=== PATIENT | male | born 1995 | race Caucasian/White ===

== ENCOUNTER 2017-06-24 21:53 | Emergency (ER) | payer BC ==
[~2017-06-24] VITALS: Ht 190.5 cm; Wt 98.7 kg
[2017-06-24 21:56] VITALS: TEMP 36.8; Ht 190.5 cm; Wt 98.7 kg
[2017-06-24] MEDS ORDERED: NORCO 5/325MG HOME PACK PO ONE (22:30)
[2017-06-24 22:45] VITALS: BP 124/62; PULSE 82; O2SAT 100
[2017-06-24] MEDS ORDERED: OMEG10007 PO (22:45)
[2017-06-24] MEDS ORDERED: ASCO500T3 PO (22:45)
[2017-06-24] MEDS ORDERED: DEXT30TA7 PO (22:45)
[2017-06-24] MEDS ORDERED: PHEN-622 PO (22:45)
--- NOTE | 2017-06-25 00:48 | EMERGENCY ROOM VISIT NOTE ---
ED Visit Note First contact with patient: 22:07 CHIEF COMPLAINT: Sore throat HISTORY OF PRESENT ILLNESS: This 22-year-old male patient presents to the emergency department complaining of increasing pain in the throat for the past 5 or 6 days, gradual in onset, worse with swallowing. They rate the pain as sharp and 7/10. They are able to swallow. The patient has not had a fever. No rash. Denies any posterior neck pain or stiffness. No difficulty breathing. Symptoms came on gradually. There has been no chest pain, no abdominal pain, no nausea or vomiting. Patient denies any cough, rhinorrhea, congestion, or ear pain. The patient has taken nothing for their symptoms. REVIEW OF SYSTEMS: A 6 system review of systems was completed with pertinent positives and negatives in the HPI. ALLERGIES: Known allergies MEDICATIONS: No current medications PMH: Otherwise healthy SOCIAL HISTORY: Student was locally PHYSICAL EXAM: Vital Signs: Reviewed Nurse's notes. GENERAL: White male, in no acute distress, non toxic in appearance, well developed, well nourished. MENTAL STATUS: Alert and oriented to person place and time. SKIN: Clear and dry, no eruptions, or rashes. No cyanosis, no petechiae. EARS: External auditory canals clear, tympanic membrane pearly ojeda without erythema or effusion bilaterally. EYES: Pupils equal round and reactive to light and accommodation. Conjunctivae without injection, sclerae without icterus. Extraocular movements intact. NOSE: Patent, turbinates inflammed with no discharge. No sinus tenderness. MOUTH: Mucous membranes moist. Tonsils are not enlarged or with exudates. The Pharynx is inflamed and slightly swollen. Pharynx with mild postnasal drip. Uvula is midline and no abscess is seen. NECK: Supple without nuchal rigidity. Anterior cervical lymphadenopathy without posterior cervical, or auricular, or submandibular lymphadenopathy. HEART: Regular rate and rhythm without murmurs gallops or rubs. LUNGS: Clear to auscultation bilaterally without wheezes, rales or rhonchi. ABDOMEN: Positive bowel sounds x 4. Normal tympanic percussion. Soft, nontender, without masses or organomegaly. ED COURSE: I examined the patient. A rapid strep test was negative. A backup culture was sent. The patient was instructed on the plan below and was discharged home in good condition. Current/Historical Medications Scheduled Ascorbic Acid (Vitamin C), 1 TAB PO DAILY Fish Oil ([place]-3), 1 CAP PO DAILY Scheduled PRN Dextromethorphan-Guaifenesin (Mucinex Dm), 1 TAB PO Q12 PRN for CONGESTION Bomladpgrethr-Dk-Lr W/ Apap ([place] Dayquil Severe Cold), 1 TAB PO BID PRN for COLD Vital Signs Date Time Temp Pulse Resp B/P (MAP) Pulse Ox O2 Delivery O2 Flow Rate FiO2 06/24/17 22:45 82 16 124/62 100 06/24/17 21:56 97 Room Air 06/24/17 21:56 36.8 75 18 156/90 97 Room Air Medications Administered Medications (Trade) Dose Ordered Sig/Cameron Route Start Time Stop Time Status Last Admin Dose Admin Acetaminophen/ Hydrocodone Bitart ([place] 5/325mg Home Pack) 1 homepack UD ONCE PO 06/24/17 22:30 06/24/17 22:31 DC 06/24/17 22:44 1 HOMEPACK Departure Information Impression Primary Impression: Sore throat Dispostion Home / Self-Care Condition GOOD Referrals [facility] (PCP) Forms HOME CARE DOCUMENTATION FORM, IMPORTANT VISIT INFORMATION Patient Instructions [facility] Additional Instructions You were seen and evaluated today on an emergency basis only. This is not a substitute for, or an effort to provide, complete comprehensive medical care. It is not possible to recognize and treat all injuries or illnesses in a single emergency department visit. For this reason it is recommended that you followup with your primary care physician or [facility] this week for recheck of your condition. For baseline pain relief you may alternate ibuprofen and acetaminophen every 4 hours for pain control. Take 600 mg ibuprofen (Advil) and then 4 hours later take 1000 mg acetaminophen (Tylenol). Do not take more than 3000 mg acetaminophen in a single day. [place] (hydrocodone/acetaminophen) 5/325 mg (homepack): ONE tab every 6 hours as needed for worsening breakthrough pain. Do not drink or drive on [place]. This medication will likely make you tired. Do not take [place] and Tylenol at the same time as both contain acetaminophen. [place] may cause constipation. You may wish to take an tzta-ytr-nvojmek stool softener like Colace if this occurs. You are welcome to return to the emergency department anytime with new, worsening, or concerning symptoms.
== END 2017-06-24 22:46 | disposition home or self-care (01) ==
LOC: C.EDB 21:54 → C.EDD 22:46
DX: J02.9 Acute pharyngitis, unspecified (principal)

== ENCOUNTER 2019-07-04 16:00 | Inpatient (IN) ==
[2019-07-04 17:14] LABS: Basophils # (auto) 0.02 K/uL (0-0.2); Basophils % (auto) 0.5 %; Eosinophils # (auto) 0.01 K/uL (0-0.5); Eosinophils % (auto) 0.2 %; Hematocrit (blood only) 42.8 % (42-52); Lymphocytes # (auto) 1.15 K/uL (1.2-3.4); Lymphocytes % (auto) 26.6 %; Mean Corpuscular Hemoglobin 30.5 pg (25-34); Mean Platelet Volume 10.2 fL (7.4-10.4); Monocytes # (auto) 0.18 K/uL (0.11-0.59); Monocytes % (auto) 4.2 %; Neutrophils # (auto) 2.97 K/uL (1.4-6.5); Neutrophils % (auto) 68.5 %; Platelet Count 182 K/uL (130-400); RDW Coefficient of Variation 12.9 % (11.5-14.5); RDW Standard Deviation 41.5 fL (36.4-46.3); Red Blood Count 4.92 M/uL (4.7-6.1); White Blood Count 4.33 K/uL (4.8-10.8)
[2019-07-04 17:23] LABS: Appearance Urine Clear (Clear); Bilirubin Urine Negative (Negative); Blood Urine Negative (Negative); Color Urine Colorless; Glucose Urine UA Negative (Negative); Ketones Urine Negative (Negative); Leukocyte Esterase Urine Negative (Negative); Nitrite Urine Negative (Negative); Protein Urine Negative (Negative); Specific Gravity Urine <= 1.005 (1.000-1.030); Urobilinogen Urine Negative (Negative); pH Urine 6.5 (4.5-7.5)
[2019-07-04 17:31] LABS: Albumin Level 4.4 gm/dl (3.4-5.0); BUN Creatinine Ratio 7.2 (10-20); Calcium 8.6 mg/dl (8.5-10.1); Creatinine Clr Calc Pharmacy 110.8 ml/min; Est GFR (African American) 94.1; Est GFR (Non-African American) 81.2; Potassium 4.3 mmol/L (3.5-5.1)
[2019-07-04 17:42] LABS: Albumin Globulin Ratio 1.5 (0.9-2); Bilirubin,Total 0.6 mg/dl (0.2-1); Thyroid Stimulating Hormone 0.527 uIu/ml (0.300-4.500); Total Protein 7.4 gm/dl (6.4-8.2)
[2019-07-04 17:44] LABS: Salicylate < 1.7 mg/dl (2.8-20)
[2019-07-04 17:45] LABS: Acetaminophen < 2 ug/ml (10-30)
[2019-07-04 17:49] LABS: Amphetamines+Metham, Urine Neg (Neg); Barbiturates, Urine Neg (Neg); Benzodiazepine, Urine Neg (Neg); Cocaine, Urine Neg (Neg); MDMA (Ecstacy), Urine Neg (Neg); Methadone, Urine Neg (Neg); Opiate, Urine Neg (Neg); Phencyclidine, Urine Neg (Neg)
--- NOTE | 2019-07-04 22:10 | Emergency Department Note ---
Entered by Isis Lorenzo acting as a scribe for History of Present Illness General Chief complaint: Mental Health Evaluation Stated complaint: MHID Time Seen by Provider: 07/04/19 16:33 Source: patient and EMS History of Present Illness Onset (ago): minute(s) (prior to arrival) Location: head (general) Pain Consistency: + other (episode) Maximum Pain Intensity: 0 Quality: + other (suicidal statements) Associated symptoms: + denies other symptoms (trauma), + loss of appetite and + other (lack of sleep and motivation); no nausea/vomiting The patient is a 24 year old male who presents to the Emergency Room following an episode of suicidal statements that occurred prior to arrival. EMS states the patient told his brother that he was going to jump off of [employer]. The patient states his ex-girlfriend, of almost two years, broke up with him about two months ago. He states that he has not been able to eat or sleep since then, and reports that he has lost 10 lbs. He notes a complete lack of motivation as well. The patient reports seeing his ex-girlfriend at a tailgate today, and wanting to say hello. He states that her friends told him to stay away and that he was selfish. He notes this is when he made the suicidal statements. The patient denies vomiting and trauma. He reports alcohol use this morning, but states it was nothing out of the ordinary. He denies any drug use. The patient reports having suicidal ideations since the age of 12. He reports trying to hurt himself one time when he was [age] due to bullying. The patient states he does not want to stay in the hospital for treatment. Home Medications Home Medications Medication Instructions Recorded Confirmed Type dextroamphetamine-amphetamine 20 mg PO DAILY 07/04/19 07/04/19 History [Adderall] Allergies Allergy/AdvReac Type Severity Reaction Status Date / Time No Known Allergies Allergy Verified 07/04/19 17:17 Past Med/Surg History Medical History No known health problems Surgical History No pertinent past surgical history Family History Other No significant family history Social History Preferred Language: Indonesian Communication Ability: Effective [employer] Required: No Beliefs That Will Affect Care: None marital status: Single Current Living Situation: Significant Other current occupational status: student Feels Safe at Home: Yes Smoking Status: Never smoker Hx Substance Use: No Review of Systems See HPI for pertinent positives & negatives. and A total of 10 systems reviewed and were otherwise negative Physical Exam Vital Signs Vital Signs - 24 hr 07/04/19 16:13 07/04/19 17:53 Temperature 36.7 C Temperature Source Oral Sepsis Recent Fever Within 48 Hours No Sepsis New/Unexplained Change in Mental Status No Sepsis Action Taken by Nursing No Action Required Pulse Rate 104 H Pulse Rate [Finger] 98 H Pulse Rhythm Regular Pulse Rhythm [Finger] Regular Respiratory Rate 18 17 Respiratory Effort / Characteristics Non-Labored Spontaneous Non-Labored Spontaneous Respiratory Depth Normal Normal Respiratory Pattern Regular Regular Blood Pressure 155/113 H Blood Pressure [Left Arm] 120/60 Blood Pressure Mean 127 Blood Pressure Mean [Left Arm] 80 Pulse Oximetry 96 98 Oxygen Delivery Method Room Air Room Air GENERAL: Patient is in no acute distress. HEENT: No acute trauma, normocephalic atraumatic, mucous membranes moist, no nasal congestion, no scleral icterus. NECK: No stridor, no adenopathy, no meningismus, trachea is midline. LUNGS: Clear to auscultation bilaterally, no wheeze, no rhonchi, breath sounds equal. HEART: Without murmurs gallops or rubs, regular rate and rhythm. ABDOMEN: Soft, nontender, bowel sounds positive, no hernias, no peritonitis. EXTREMITIES: No cyanosis or edema, full range of motion of all the joints without pain or difficulty, no signs for acute trauma. NEUROLOGIC: Oriented x 3, no acute motor or sensory deficits, no focal weakness. Slight speech slur consistent possibly with alcohol intoxication. SKIN: No rash, no jaundice, no diaphoresis. PYSCH: Patient admits to suicidal thoughts of jumping off [employer]. Currently voluntary and cooperative. Course 1640: Past medical records reviewed. The patient was evaluated in room A06. A complete history and physical exam was performed. 175: The patient's alcohol level will be below 100 at approximately 9pm. 2100: Upon reevaluation, the patient was resting comfortably. I discussed findings and results with the patient. Case management was speaking with the patient's mother. 2129: Case management advised voluntary hospital stay. Patient was consenting. 2254: The patient will be evaluated for further management and care in [address] [place] [address]. Medical Decision Making Differential Diagnosis Differential diagnosis: Suicidal ideation, alcohol and drug abuse, situational depression, electrolyte imbalance, anemia, thyroid disorder Medical Records Attestation: I reviewed the patient's medical records. Home Medications Current Medication List: was personally reviewed by me Laboratory Data Attestation: I reviewed the patient's lab results. Result diagrams: 07/04/19 17:01 07/04/19 17: Lab Results 07/04/19 07/04/19 07/04/19 Range/Units 17:00 17:00 17: WBC 4.33 L (4.8-10.8) K/uL RBC 4.92 (4.7-6.1) M/uL Hgb 15.0 (14.0-18.0) g/dL Hct 42.8 (42-52) % MCV 87.0 (80-100) fL MCH 30.5 (25-34) pg MCHC 35.0 (32-36) g/dL RDW Std Deviation 41.5 (36.4-46.3) fL RDW Coeff of Lia 12.9 (11.5-14.5) % Plt Count 182 (130-400) K/uL MPV 10.2 (7.4-10.4) fL Immature Gran % (Auto) 0.0 % Neut % (Auto) 68.5 % Lymph % (Auto) 26.6 % Kay % (Auto) 4.2 % Eos % (Auto) 0.2 % Baso % (Auto) 0.5 % Immature Gran # (Auto) 0.00 (0.00-0.02) K/uL Neut # (Auto) 2.97 (1.4-6.5) K/uL Lymph # (Auto) 1.15 L (1.2-3.4) K/uL Kay # (Auto) 0.18 (0.11-0.59) K/uL Eos # (Auto) 0.01 (0-0.5) K/uL Baso # (Auto) 0.02 (0-0.2) K/uL Sodium (136-145) mmol/L Potassium (3.5-5.1) mmol/L Chloride (98-107) mmol/L Carbon Dioxide (21-32) mmol/L Anion Gap (3-11) BUN (7-18) mg/dl Creatinine (0.6-1.4) mg/dl Est Cr Clr Drug Dosing ml/min Est GFR ( Amer) Est GFR (Non-Af Amer) BUN/Creatinine Ratio (10-20) Glucose (70-99) mg/dl Calcium (8.5-10.1) mg/dl Total Bilirubin (0.2-1) mg/dl AST (15-37) U/L ALT (12-78) U/L Alkaline Phosphatase (45-117) U/L Total Protein (6.4-8.2) gm/dl Albumin (3.4-5.0) gm/dl Globulin (2.5-4.0) gm/dl Albumin/Globulin Ratio (0.9-2) TSH (0.300-4.500) uIu/ml Urine Color Colorless Urine Appearance Clear (Clear) Urine pH 6.5 (4.5-7.5) Ur Specific [place] <= 1.005 (1.000-1.030) Urine Protein Negative (Negative) Urine Glucose (UA) Negative (Negative) Urine Ketones Negative (Negative) Urine Blood Negative (Negative) Urine Nitrite Negative (Negative) Urine Bilirubin Negative (Negative) Urine Urobilinogen Negative (Negative) Ur Leukocyte Esterase Negative (Negative) Salicylates (2.8-20) mg/dl Urine Opiates Screen Neg (Neg) Ur Methadone, Qual Neg (Neg) Acetaminophen (10-30) ug/ml Urine Barbiturates Neg (Neg) Ur Phencyclidine (PCP) Neg (Neg) U Amphetamin/Meth Scrn Neg (Neg) MDMA (Ecstasy) Screen Neg (Neg) U Benzodiazepines Scrn Neg (Neg) Ur Cocaine Metabolite Neg (Neg) U Marijuana (THC) Screen Neg (Neg) Ethyl Alcohol mg/dL (0-3) mg/dl 07/04/19 07/04/19 07/04/19 Range/Units 17:01 17:01 17:01 WBC (4.8-10.8) K/uL RBC (4.7-6.1) M/uL Hgb (14.0-18.0) g/dL Hct (42-52) % MCV (80-100) fL MCH (25-34) pg MCHC (32-36) g/dL RDW Std Deviation (36.4-46.3) fL RDW Coeff of Lia (11.5-14.5) % Plt Count (130-400) K/uL MPV (7.4-10.4) fL Immature Gran % (Auto) % Neut % (Auto) % Lymph % (Auto) % Kay % (Auto) % Eos % (Auto) % Baso % (Auto) % Immature Gran # (Auto) (0.00-0.02) K/uL Neut # (Auto) (1.4-6.5) K/uL Lymph # (Auto) (1.2-3.4) K/uL Kay # (Auto) (0.11-0.59) K/uL Eos # (Auto) (0-0.5) K/uL Baso # (Auto) (0-0.2) K/uL Sodium 136 (136-145) mmol/L Potassium 4.3 (3.5-5.1) mmol/L Chloride 103 (98-107) mmol/L Carbon Dioxide 28 (21-32) mmol/L Anion Gap 5.0 (3-11) BUN 9 (7-18) mg/dl Creatinine 1.25 (0.6-1.4) mg/dl Est Cr Clr Drug Dosing 110.8 ml/min Est GFR ( Amer) 94.1 Est GFR (Non-Af Amer) 81.2 BUN/Creatinine Ratio 7.2 L (10-20) Glucose 92 (70-99) mg/dl Calcium 8.6 (8.5-10.1) mg/dl Total Bilirubin 0.6 (0.2-1) mg/dl AST 19 (15-37) U/L ALT 30 (12-78) U/L Alkaline Phosphatase 87 (45-117) U/L Total Protein 7.4 (6.4-8.2) gm/dl Albumin 4.4 (3.4-5.0) gm/dl Globulin 3.0 (2.5-4.0) gm/dl Albumin/Globulin Ratio 1.5 (0.9-2) TSH 0.527 (0.300-4.500) uIu/ml Urine Color Urine Appearance (Clear) Urine pH (4.5-7.5) Ur Specific [place] (1.000-1.030) Urine Protein (Negative) Urine Glucose (UA) (Negative) Urine Ketones (Negative) Urine Blood (Negative) Urine Nitrite (Negative) Urine Bilirubin (Negative) Urine Urobilinogen (Negative) Ur Leukocyte Esterase (Negative) Salicylates < 1.7 L (2.8-20) mg/dl Urine Opiates Screen (Neg) Ur Methadone, Qual (Neg) Acetaminophen < 2 L (10-30) ug/ml Urine Barbiturates (Neg) Ur Phencyclidine (PCP) (Neg) U Amphetamin/Meth Scrn (Neg) MDMA (Ecstasy) Screen (Neg) U Benzodiazepines Scrn (Neg) Ur Cocaine Metabolite (Neg) U Marijuana (THC) Screen (Neg) Ethyl Alcohol mg/dL 197.0 H (0-3) mg/dl Blood Pressure Blood Pressure Findings: Elevated blood pressure Blood Pressure Disposition: further management by hospitalist MDM Narrative There is no leukocytosis or concerning anemia. No significant electrolyte abnormality. No kidney failure. No liver enzyme elevation. The patient appears to be in a euthyroid state. Urinalysis does not show infection. Urine tox is negative. Aspirin, Tylenol levels are undetectable. Alcohol level was elevated at 197. The patient was watched for about 4 hours, this allowed his alcohol to clear. He was then assessed by psychiatry case management. The patient is demonstrating suicidality. A hospital stay was felt warranted. The patient did consent to a voluntary stay. A bed search was performed. The patient will be brought into our hospital's psychiatric facility, [facility] [address] The marisa ent has been cooperative during his ED stay. Impression & Plan Suicidal ideation, Alcohol abuse Discharge Plan Visit Data *Final* Discharge Date/Time: 07/04/19 23:10 Chief Complaint: Mental Health Evaluation Stated Complaint: MHID ED Provider: Remigio Degroot Discharge Problem: Suicidal ideation, Alcohol abuse Patient Disposition: Admitted As Inpatient Condition: Good Discharge Instructions Interventions: ED Discharge Assessment Last Done: 07/04/19 23:10 The janay's documentation has been prepared under my direction and personally reviewed by me in its entirety. I confirm that the note above accurately reflects all work, treatment, procedures, and medical decision making performed by me.
[2019-07-04] MEDS ORDERED: BISMUTH SUBSALICYLATE PER ML OMNICELL CHARGE PO PRN (23:40)
[2019-07-04] MEDS ORDERED: ALUMINUM/MAGNESIUM SUSP 30 ML UDC PO PRN (23:40)
[2019-07-04] MEDS ORDERED: MAGNESIUM HYDROXIDE SUSP 30 ML UDC PO PRN (23:40)
[2019-07-04] MEDS ORDERED: SODIUM CHLORIDE 0.65% NA SOLN 45 ML (OCEAN) PRN (23:40)
[2019-07-05] MEDS ORDERED: SERTRALINE HCL 50 MG TABLET PO ONE (15:30)
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
[2019-07-06] MEDS: SERTRALINE HCL 50 MG TABLET PO SCH (08:01)
--- NOTE | 2019-07-06 12:21 | Psychiatric Progress Note ---
Date of Service July 06, 2019 Impression / Recommendations Impression Pt is a 24yo SWM with h/o ADD tx with adderall who now is depressed for 2 months s/p break up. He demonstrates some chronic interpersonal difficulties peppered throughout his life and it is unclear if there are deficits in interpersonal skills that cause him to form relationships with people with traits that take advantage of or bully, or if something happens during the relationship that he is not perceiving, or series of unfortunate events or further residual sx of ADHD that have allowed deficits in social learning at times. He does report a good 2 years in college 2017 to 2019. 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 He has enough neurovegatative sx that this supercedes grief and could be called depression. He has some anxiety features but will not dx stand alone anxiety disorder at this time. He reports cutting back on alcohol since college so although alcohol intoxication mediated this recent SI, and admission he does not seem to have a formal alcohol use disorder. (1) Suicidal ideation: 07/05 - inpatient care is least restrictive and most appropriate setting for care at this time while we observe behaviors and modify safety risk factors 07/06 - Pt denies continued suicidality; continue to encourage development of healthy coping strategies (2) Major depressive disorder, single episode with psychotic features with anxious distress: - patient is open to therapy referral in his local area - briefly discussed grief and his negative lens as topics for therapy - he may benefit from group therapy for social support and practice if available in his area - patient is open to SSRI zoloft, discussed r/b/se/a to include black box warning for watching for SI, and/or mood switching 25mg on 07/05, and then 50mgpo qday starting AM 07/06/19 for depression wtih anxious distress - agree with kwok milieu, group therapy and safety planning - h/o ADHD will not restart adderall, as watching BP and hospital stay will be short and he can resume when he returns to outpatient setting 07/06 - Continue sertraline 50mg; consider further titration prior to discharge depending on tolerance - Continue to secure therapy options in his area; has a current psychiatric prescriber - Encourage family meeting with outpatient support Inventory Assets Strengths: voluntary for admission willing to discuss and consider treatment Needs: after care therapist social supports Risk Factors Assessment Male: Yes : Yes Health Problems: No Mental Health Diagnoses: Yes Substance Use Disorders: No Previous Attempt: Yes Family History of Suicide: No Previous Psychiatric Hospitalization: No Hopelessness: No Smoker: No Protective Factors Assessment Mormonism Beliefs: No : No Responsible for Young Children: No 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 He as was admitted on 07/04/19 22:43 on a 201 voluntary commitment for SI initially verbalized while intoxicated but when sober noted "it was not the alcohol....I am depressed" and could not contract for safety to return home. Chief Complaint "I've been feeling better. I had a good conversation last night, and I'm done with it. I need to move on." Review of Systems Notes Constitutional: denied Cardiovascular: denied Respiratory: denied Gastrointestinal: denied Neurological: denied Psychiatric: denies symptoms other than stated above Total of at least 10 systems reviewed, pertinent positives as above and in HPI. Sleep Information Total Hours of Sleep: 7.5 Sleep Comments: pt on q-15 minute checks Meal Information Percent Meal Consumed - Breakfast: 90 Percent Meal Consumed - Lunch: 100 Percent Meal Consumed - Dinner: 100 Subjective Subjective Patient was seen & assessed and interval progress reviewed with treatment team. Staff report the patient admits to some improvement in mood, feeling the fact that he was intoxicated was largely to blame for his admission. Pt has not yet identified supports he would like to have a meeting with. Patient was seen today to assess progress since admission. Pt states he is "feeling better." He shares with this provider general information regarding the situation leading to his admission. He states that his lack of closure with his current relationship "has been on my brain every day, over and over, just building a building." Patient states that he had a decent conversation with a counselor last evening, allowing him to come to the realization "the world doesn't owe me closure." He states that he spent some time thinking last evening and determined "it was searching for this closure that led me to this terrible mood, pretty bad weight loss, and just feeling terrible. I realized that if something was making me feel like that, it was not worth my time anymore." The patient continues to admit that alcohol use did not benefit the situation, and states "I never want to touch alcohol again. I view it is the driving force for all of the negative things that have happened in my life." Patient states he is interested in continuing outpatient psychiatric treatment, and verbalizes to this provider "I am well prepared to put in the work I have to." Patient does share with this provider desire to involve outpatient supports in a family meeting, but is not yet sure of who that might be. Patient also verbalizes anxiety about a phone call he is to be getting following up on an important interview, and also needing to reschedule the LSATswhich she was supposed to take this coming weekend. This provider stated we would assist the patient in these tasks, and continue to work with him on improving his mood and solidifying aftercare. Patient denies suicidality today, does not verbalize any other needs or concerns at this time. Physical Exam Psychiatric Orientation: alert, oriented x 3 and cooperative (and pleasant) Apperance: appropriately dressed, appropriately groomed and appeared stated age Eye Contact: good eye contact Motor Behavior: steady gait and station and no abnormal motor movements Speech: normal rate/rhythm/volume of speech Affect: + depressed affect and mood congruent with affect Mood: + depressed mood ("Things are getting better" and "I was honestly at my lowest point") Thought Process: goal directed thought process, clear/coherent thought process and thought association intact Thought Content: reality based without delusions; no hopelessness (reports desire to move beyond requiring closure from ended relationship) Suicidal Thoughts: denies suicidal thoughts and denies suicidal intent Homicidal Thoughts: denies homicidal thoughts Hallucinations: no auditory hallucinations and no visual hallucinations Insight: + fair insight Judgement: + fair judgement Vital Signs (Past 24 Hours) Last Vital Signs Temp 36.7 C 07/06/19 07:00 Pulse 89 07/06/19 07:01 Resp 18 07/06/19 07:00 BP 131/81 07/06/19 07:01 Pulse Ox 96 07/04/19 23:44 Results & Data Current Inpatient Medications Current Inpatient Medications: Current Inpatient Medications Acetaminophen (Tylenol) 650 mg PO Q4H PRN PRN Reason: Headache or Minor Fever Stop: 08/03/19 23:39 Al Hydrox/Mg Hydrox/Simethicone (Maalox) 30 ml PO Q4H PRN PRN Reason: GI Upset Stop: 08/03/19 23:39 Bismuth Subsalicylate (Kaopectate) 15 ml PO PRN PRN PRN Reason: Loose Stool Stop: 08/03/19 23:39 Hydroxyzine HCl (Vistaril) 50 mg PO HSZ PRN PRN Reason: Insomnia Stop: 08/03/19 23:39 Hydroxyzine HCl (Vistaril) 25 mg PO Q4H PRN PRN Reason: Anxiety Stop: 08/03/19 23:39 Magnesium Hydroxide (Milk Of Magnesia) 30 ml PO DAILY PRN PRN Reason: Constipation Stop: 08/03/19 23:39 Sertraline HCl (Zoloft) 50 mg PO QAM KAISER Stop: 08/05/19 08:59 Last Admin: 07/06/19 08:01 Dose: 50 mg Documented by: Sodium Chloride ([place] Nasal) 1 - 2 sprays NA PRN PRN PRN Reason: Nasal Dryness/Congestion Stop: 08/03/19 23:39 Mental Health & Subst Abuse Tx Psychiatrist Name of Psychiatrist: [facility] Psychiatrist's Date of Appointment with Psychiatrist: 07/14/19 Time of Appointment with Psychiatrist: 12pm Psychiatric Appointment Comment: [address] [place], [place] [address] Therapist Name of Therapist: Denies Drywall Hanger Name of Drywall Hanger: Denies Post Discharge Appointments Primary Care Physician Name Of Family Doctor: [facility] Time of Appointment with PCP: Follow up as needed. Provider Appointment Comment: [address] [facility], [address] [facility], [place] [address]
[2019-07-06] MEDS: ACETAMINOPHEN 325 MG TAB PO PRN ×2 (13:00→22:16)
[2019-07-07] MEDS: SERTRALINE HCL 50 MG TABLET PO SCH (08:32)
[2019-07-07] MEDS: ACETAMINOPHEN 325 MG TAB PO PRN ×3 (08:36→23:23)
--- NOTE | 2019-07-07 13:12 | Psychiatric Progress Note ---
Date of Service July 07, 2019 Impression / Recommendations Impression Pt is a 24yo SWM with h/o ADD tx with adderall who now is depressed for 2 months s/p break up. He demonstrates some chronic interpersonal difficulties peppered throughout his life and it is unclear if there are deficits in interpersonal skills that cause him to form relationships with people with traits that take advantage of or bully, or if something happens during the relationship that he is not perceiving, or series of unfortunate events or further residual sx of ADHD that have allowed deficits in social learning at times. He does report a good 2 years in college 2017 to 2018. 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 He has enough neurovegatative sx that this supercedes grief and could be called depression. He has some anxiety features but will not dx stand alone anxiety disorder at this time. He reports cutting back on alcohol since college so although alcohol intoxication mediated this recent SI, and admission he does not seem to have a formal alcohol use disorder. (1) Suicidal ideation: 07/05 - inpatient care is least restrictive and most appropriate setting for care at this time while we observe behaviors and modify safety risk factors 07/06 - Pt denies continued suicidality; continue to encourage development of healthy coping strategies 07/07 - Pt denies suicidality - admits to occasional thoughts related to prior SI, but is able to dismiss them stating "I don't want to get anywhere close to that place again" - Better able to contract for safety, has been communicating with family (2) Major depressive disorder, single episode with psychotic features with anxious distress: - patient is open to therapy referral in his local area - briefly discussed grief and his negative lens as topics for therapy - he may benefit from group therapy for social support and practice if available in his area - patient is open to SSRI zoloft, discussed r/b/se/a to include black box warning for watching for SI, and/or mood switching 25mg on 07/05, and then 50mgpo qday starting AM 07/06/19 for depression wtih anxious distress - agree with kwok milieu, group therapy and safety planning - h/o ADHD will not restart adderall, as watching BP and hospital stay will be short and he can resume when he returns to outpatient setting 07/06 - Continue sertraline 50mg; consider further titration prior to discharge depending on tolerance - Continue to secure therapy options in his area; has a current psychiatric prescriber - Encourage family meeting with outpatient support 07/07 - Continue sertraline 50mg daily; consider need for further titration on an outpatient basis - Family meeting with mother held today; assist with anticipating future family conversations and topics patient desire to discuss - Desire to see continued consistency of mood, could consider discharge in the next 1-2 days Inventory Assets Strengths: voluntary for admission willing to discuss and consider treatment Needs: after care therapist social supports Risk Factors Assessment Male: Yes : Yes Health Problems: No Mental Health Diagnoses: Yes Substance Use Disorders: No Previous Attempt: Yes Family History of Suicide: No Previous Psychiatric Hospitalization: No Hopelessness: No Smoker: No Protective Factors Assessment Taoism Beliefs: No : No Responsible for Young Children: No 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 at his family home with his parents who has a history of a break up with his GF in 04/2019 starting a Major depressive episode. He as was admitted on 07/04/19 22:43 on a 201 voluntary commitment for SI initially verbalized while intoxicated but when sober noted "it was not the alcohol....I am depressed" and could not contract for safety to return home. Chief Complaint "I am fine, feeling pretty good." Review of Systems Notes Constitutional: denied HEENT: reports sore throat and nasal congestion Cardiovascular: denied Respiratory: denied Gastrointestinal: denied Neurological: denied Psychiatric: denies symptoms other than stated above Total of at least 10 systems reviewed, pertinent positives as above and in HPI. Sleep Information Total Hours of Sleep: 6.75 Sleep Comments: pt on q-15 minute checks Meal Information Percent Meal Consumed - Breakfast: 75 Percent Meal Consumed - Lunch: 100 Percent Meal Consumed - Dinner: 90 Subjective Subjective Patient was seen & assessed and interval progress reviewed with nursing and social work. Staff reports the patient continues to demonstrate improvements in overall condition. He rated his mood a 10/10 and "bad knees" last evening. Patient is observed to be out of his room and participates appropriately in groups, with a supportive attitude of peers. Patient is scheduled for a family meeting with his mother this morning. Patient was seen today to assess progress since admission. This provider was informed this morning that the patient had a slight fever, and was also complaining of a sore throat and stuffy nose. Patient states that the symptoms have continued as the day has progressed, pain improved with acetaminophen. Patient is accepting of throat lozenges; however, does not have an interest in cold medication at this time. When asked about his family meeting, patient states it went "as well as it could have ever went." Patient states overall he had a positive feeling about the meeting; however, does feel that there is a small disconnect with regards to his family's awareness of the severity of his recent mental health concerns. Patient does state he was able to communicate effectively with his mother, but remains concerned about how communication with his father and younger siblings will go. We discussed the idea of anticipating these conversations, and coming up with a plan for how he will approach certain subjects. Patient continues to feel that his parents are somewhat dismissive when he verbalizes mental health struggles. We we discussed various ways that patient can effectively communicate to his parents when the topic is serious, as opposed to a more minor discussion about mood. Patient is interested in exploring this topic later this evening 1-on-1 with a counselor. Patient admits to continued "nightmares, and thoughts at night" about his previous suicidal thinking; but continues to verbalize that he "does not ever want to get back to that spot again." Patient does admit that he feels he has adequate support to communicate these thoughts effectively should they recur after discharge. He denies any concerns related to medications, and we have confirmed that he has a therapy appointment later this week. Patient denies other specific needs or concerns at this time, and requests to know from this provider if there is anything he can be helping with to facilitate discharge. Physical Exam Psychiatric Orientation: alert, oriented x 3 and cooperative (And pleasant) Apperance: appropriately dressed (Casually, in sweater and sweatpants), appropriately groomed and appeared stated age Eye Contact: good eye contact Motor Behavior: steady gait and station and no abnormal motor movements Speech: normal rate/rhythm/volume of speech Affect: + depressed affect (Mildly, improving overall), + anxious affect (Presenting as somewhat timid, but very polite) and mood congruent with affect Mood: + depressed mood ("Fine, I feel pretty good.") and + anxious mood (When thinking about continued communication with family) Thought Process: goal directed thought process, linear/logical thought process, clear/coherent thought process and thought association intact Thought Content: reality based without delusions; no hopelessness and no worthlessness Suicidal Thoughts: denies suicidal thoughts and denies suicidal intent Homicidal Thoughts: denies homicidal thoughts Hallucinations: no auditory hallucinations and no visual hallucinations Cognition: attention grossly intact and language grossly intact Insight: good insight Judgement: good judgement Vital Signs (Past 24 Hours) Last Vital Signs Temp 37.7 C H 07/07/19 06:00 Pulse 123 H 07/07/19 06:46 Resp 18 07/07/19 06:00 BP 123/84 07/07/19 06:46 Pulse Ox 96 07/04/19 23:44 Results & Data Current Inpatient Medications Current Inpatient Medications: Current Inpatient Medications Acetaminophen (Tylenol) 650 mg PO Q4H PRN PRN Reason: Headache or Minor Fever Stop: 08/03/19 23:39 Last Admin: 07/07/19 08:36 Dose: 650 mg Documented by: Al Hydrox/Mg Hydrox/Simethicone (Maalox) 30 ml PO Q4H PRN PRN Reason: GI Upset Stop: 08/03/19 23:39 Bismuth Subsalicylate (Kaopectate) 15 ml PO PRN PRN PRN Reason: Loose Stool Stop: 08/03/19 23:39 Hydroxyzine HCl (Vistaril) 50 mg PO HSZ PRN PRN Reason: Insomnia Stop: 08/03/19 23:39 Hydroxyzine HCl (Vistaril) 25 mg PO Q4H PRN PRN Reason: Anxiety Stop: 08/03/19 23:39 Magnesium Hydroxide (Milk Of Magnesia) 30 ml PO DAILY PRN PRN Reason: Constipation Stop: 08/03/19 23:39 Sertraline HCl (Zoloft) 50 mg PO QAM KAISER Stop: 08/05/19 08:59 Last Admin: 07/07/19 08:32 Dose: 50 mg Documented by: Sodium Chloride ([place] Nasal) 1 - 2 sprays NA PRN PRN PRN Reason: Nasal Dryness/Congestion Stop: 08/03/19 23:39 Mental Health & Subst Abuse Tx Psychiatrist Name of Psychiatrist: Nadeem Purcell Psychiatrist's Date of Appointment with Psychiatrist: 07/14/19 Time of Appointment with Psychiatrist: 12pm Psychiatric Appointment Comment: [address] [place] [address] Therapist Name of Therapist: [facility] Therapist's Therapy Appointment Comment: [address], [place] [address] Site Inspector Name of Site Inspector: Denies Post Discharge Appointments Primary Care Physician Name Of Family Doctor: [facility] Time of Appointment with PCP: Follow up as needed. Provider Appointment Comment: [address], [address] [facility], [place] [address]
[2019-07-07] MEDS ORDERED: COUGH DROP (SUGAR FREE) LOZ 24 LOZ/1 BOX BUCCAL PRN (14:42)
[2019-07-08] MEDS: SERTRALINE HCL 50 MG TABLET PO SCH (08:50)
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
== END 2019-07-08 11:30 | disposition home or self-care (01) | DRG 885 ==
LOC: ED 16:00 → 3S 22:43